=== PATIENT | male | born 1990 | race Caucasian/White ===

== ENCOUNTER 2018-04-19 11:58 | Emergency (ER) | payer MEDICAID, OTHER ==
[~2018-04-19] VITALS: Ht 177.8 cm; Wt 95.5 kg
[2018-04-19 12:09] VITALS: BP 147/63
[2018-04-19] MEDS ORDERED: PRED20TA PO (13:00)
[2018-04-19] MEDS ORDERED: methylPREDNISolone sod succ 125mg/2ml vial IM ONE (13:00)
[2018-04-19] MEDS ORDERED: DIPH25CA83 PO (13:00)
== END 2018-04-19 13:33 | disposition home or self-care (01) ==
LOC: ER 11:58
DX: L23.7 Allergic contact dermatitis due to plants, except food (principal); Z88.8 Allergy status to other drugs, medicaments and biological substances
CPT/HCPCS: 96372; 99283; J2930

== ENCOUNTER 2018-05-01 17:48 | Emergency (ER) | payer MEDICAID ==
[~2018-05-01] VITALS: Ht 170.2 cm; Wt 93.2 kg
[~2018-05-01 17:48] MED LIST: DIPH25CA83 PO
--- NOTE | 2018-05-01 18:15 | NUR ---
XRAY COMPLETE. ICE PROVIDED
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
[2018-05-01] MEDS ORDERED: ketorolac tromethamine 15mg/ml inj. IM ONE (18:45)
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
[2018-05-01 19:18] VITALS: BP 134/76
== END 2018-05-01 19:22 | disposition home or self-care (01) ==
LOC: ER 17:49
DX: S43.084A Other dislocation of right shoulder joint, initial encounter (principal); Z88.8 Allergy status to other drugs, medicaments and biological substances; F15.90 Other stimulant use, unspecified, uncomplicated; Z79.899 Other long term (current) drug therapy; X58.XXXA Exposure to other specified factors, initial encounter; Y93.89 Activity, other specified; Y92.89 Other specified places as the place of occurrence of the external cause; Y99.8 Other external cause status
CPT/HCPCS: 23650; 73030; 96372; 99284; J1885

== ENCOUNTER 2018-05-11 18:25 | Emergency (ER) | payer MEDICAID ==
[~2018-05-11] VITALS: Ht 177.8 cm; Wt 93.2 kg
[2018-05-11] MEDS ORDERED: LIDOcaine 1% 30ml preserv. free vial IJ ONE (18:35)
[2018-05-11] MEDS ORDERED: fentaNYL/PF 50MCG/1 ML 2ML syringe IV ONE (18:35)
[2018-05-11] MEDS ORDERED: propofol 10mg/ml 20ml vial IV ONE (18:50)
--- NOTE | 2018-05-11 19:19 | NUR ---
Procedure started/meds given at 1910
--- NOTE | 2018-05-11 19:37 | NUR ---
Pt placed in shoulder immobilizer.
[2018-05-11 20:20] VITALS: BP 144/60
== END 2018-05-11 20:21 | disposition home or self-care (01) ==
LOC: ER 18:25
DX: S43.084A Other dislocation of right shoulder joint, initial encounter (principal); F15.90 Other stimulant use, unspecified, uncomplicated; Z88.8 Allergy status to other drugs, medicaments and biological substances; X50.1XXA Overexertion from prolonged static or awkward postures, initial encounter; Y93.89 Activity, other specified; Y92.89 Other specified places as the place of occurrence of the external cause; Y99.9 Unspecified external cause status
CPT/HCPCS: 23650; 73020; 94760; 99285; J2704; J3010; J3490